=== PATIENT | male | born 1955 | race Caucasian/White ===

== ENCOUNTER 2017-09-10 08:18 | Inpatient (IN) | payer BC, OTHER ==
[~2017-09-10] VITALS: Ht 180.3 cm; Wt 85.3 kg
[2017-09-10] MEDS ORDERED: ACETAMINOPHEN 325 MG TABLET PO PRN (13:00)
[2017-09-10] MEDS ORDERED: MAG HYDROX/AL HYDROX/SIMETH 30 ML LIQUID UDC PO PRN (13:00)
[2017-09-10] MEDS ORDERED: LORAZEPAM 1 MG TABLET PO PRN ×2 (13:00)
[2017-09-10] MEDS ORDERED: ONDANSETRON 4 MG/2 ML VIAL IM PRN (13:00)
[2017-09-10] MEDS ORDERED: IBUPROFEN 400 MG TABLET PO PRN (13:00)
[2017-09-10] MEDS ORDERED: diphenhydrAMINE 50 MG CAPSULE PO PRN (13:00)
[2017-09-10] MEDS ORDERED: LOPERAMIDE HCL 2 MG CAPSULE PO PRN ×2 (13:00)
[2017-09-10] MEDS ORDERED: CLONIDINE HCL 0.1 MG TABLET PO PRN (13:00)
[2017-09-10] MEDS ORDERED: DICYCLOMINE HCL 20 MG TABLET PO PRN (13:00)
[2017-09-10] MEDS ORDERED: MIRALAX 17 GM POWD.PACK PO PRN (13:00)
[2017-09-10] MEDS ORDERED: ONDANSETRON ODT 4 MG TAB.RAPDIS SL PRN (13:00)
[2017-09-10] MEDS ORDERED: LORAZEPAM 2 MG/1 ML VIAL IM PRN (13:00)
--- NOTE | 2017-09-10 13:15 | NUR ---
Intake Assessment; Patient is a 62 year old male presented to [facility] to detoxify from ETOH (beer). Patient is from [place] and arrived at intake office approximately 1300. Patient appears anxious, irritable, chills, tremors, diaphoresis and headache. Patient denies history of seizures and denies any allergies. Admitting vital signs are as follows; BP 131/85, HR 90, Respirations 18, SPo2 @ 96%, temperature 97.8, denies pain at this time. Educated patient regarding unit protocols and policies, patient verbalized understanding. Will continue with further assessment when patient is up on the unit.
[2017-09-10 13:46] LABS: *AMPHETAMINE, URINE NEGATIVE (NEGATIVE); *BARBITURATE, URINE NEGATIVE (NEGATIVE); *CANNABINOID, URINE NEGATIVE (NEGATIVE); *COCCAINE, URINE NEGATIVE (NEGATIVE); *OPIATE, URINE NEGATIVE (NEGATIVE); *PHENCYCLIDINE SCREEN,URINE NEGATIVE (NEGATIVE)
[2017-09-10 13:48] LABS: BASOPHILS % (AUTO) 0.4 % (0.0-2.0); EOSINOPHILS % (AUTO) 0.4 % (0.0-7.0); HEMATOCRIT 49.1 % (36.7-47.1); HEMOGLOBIN 16.8 g/dL (12.5-16.3); LYMPHOCYTES # (AUTO) 1.3 K/uL (20.0-40.0); LYMPHOCYTES % (AUTO) 13.2 % (20.5-51.5); MEAN CORPUSCULAR HGB CONC 34 g/dL (32.5-36.3); MEAN CORPUSCULAR VOLUME 99.3 fL (73.0-96.2); MONOCYTES % (AUTO) 10.2 % (0.0-11.0); NEUTROPHILS # (AUTO) 7.4 K/uL (1.8-8.9); NEUTROPHILS % (AUTO) 75.8 % (38.5-71.5); PLATELET COUNT (AUTO) 196 K/uL (152-348); RED BLOOD CELL COUNT(AUTO) 4.95 MIL/uL (4.06-5.63); WHITE BLOOD COUNT (AUTO) 9.7 K/uL (3.6-10.2)
[2017-09-10] MEDS ORDERED: RIVA20TA PO (13:52)
[2017-09-10] MEDS ORDERED: OMEP20TA20 PO (13:52)
[2017-09-10] MEDS ORDERED: [UNRECOGNIZED DRUG - OTHER] INH (13:52)
[2017-09-10] MEDS ORDERED: FURO40TA5 PO (13:52)
[2017-09-10] MEDS ORDERED: zicam (13:52)
[2017-09-10] MEDS ORDERED: LORA10TA7 PO (13:52)
[2017-09-10] MEDS ORDERED: FLUO40CA49 PO (13:52)
[2017-09-10] MEDS ORDERED: ONDA8TAB13 PO (13:52)
[2017-09-10 13:53] LABS: ETHANOL < 3 MG/DL (0-0)
[2017-09-10 13:56] LABS: ALANINE AMINOTRANSFERASE 97 U/L (16-63); ALKALINE PHOSPHATASE 113 U/L (50-136); AMYLASE 62 U/L (25-115); ASPARTATE AMINOTRANSFERASE 87 U/L (15-37); BILIRUBIN,TOTAL 1.1 mg/dL (0.2-1.0); CARBON DIOXIDE 25 mmol/L (21-32); CHLORIDE 97 mmol/L (98-107); CREATININE 1.3 mg/dL (0.6-1.3); GLUCOSE 113 mg/dL (74-106); MAGNESIUM 1.9 mg/dL (1.8-2.4); POTASSIUM 4.2 mmol/L (3.5-5.1); TOTAL PROTEIN, SERUM 8.1 g/dL (6.4-8.2); UREA NITROGEN, BLOOD 14 mg/dL (7-18)
[2017-09-10] MEDS ORDERED: THIAMINE HCL 200 MG/2 ML VIAL IM ONE (14:00)
[2017-09-10] MEDS ORDERED: Medication Not On Formulary EA (Fluoxetine Hcl 40 MG) PO SCH (14:30)
--- NOTE | 2017-09-10 15:03 | NUR ---
Admission note; Patient is a 62 year old male presented to [facility] to detoxify from ETOH (beer). Patient is from [place] and arrived at intake office approximately 1300. Patient appears anxious, irritable, chills, tremors, diaphoresis and headache. Patient denies history of seizures and denies any allergies. Admitting vital signs are as follows; BP 131/85, HR 90, Respirations 18, SPo2 @ 96%, temperature 97.8, denies pain at this time. Educated patient regarding unit protocols and policies, patient verbalized understanding. Substance use discussed. Patient reported that he started drinking when he was 12 years old. 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 At this rate he consumes (12oz) 6-12 bottles of beer on a daily basis , last consumed on 09/08/17 afternoon. He also had a history of Opioid use d/t to his herniated disc , but he stated that the last time he took Opioid was 06/2017. Patient was also prescribed Ativan for Anxiety PRN but patient denies dependence to Benzodiazepines. Medical history discussed. Patient reported chronic back pain d/t herniated/bulging disc 4 years ago, hernia repair 5 years ago, GERD, Legionella disease 4 years ago and Cardiac Ablation d/t arrhythmia 1 year ago. Patient reported that he was taking Xarelto before last taken 8 months ago and Lasix last taken July 2016. Currently patient takes Fluoxetine and Prilosec only. Patient has never been to medical Detox treatment before. Patient's primary care physician is Dr. Alex Miramontes. Skin check done with no significant findings. Current CIWA score of 5. Patient reported that his Advance directive is DNR, reported to Dr. Ceballos. All safety measures secured. Will continue to monitor patient. Patient was seen and evaluated by
[2017-09-10 16:00] VITALS: BP 117/90
[2017-09-10] MEDS: LORAZEPAM 1 MG TABLET PO SCH ×2 (16:14→20:42)
--- NOTE | 2017-09-10 18:47 | NUR ---
End of shift note; Patient is AOX4. Patient was started on a 5 day Ativan taper. Educated patient regarding the importance of compliance to treatment and medication regime, patient verbalized understanding. Patient's last CIWA is 11 at 1600. Patient appears anxious, tremors noted, restless, complaining of headache, diaphoresis and stomach cramps. All safety measures secured. Met all needs.
--- NOTE | 2017-09-10 19:30 | NUR ---
START OF SHIFT Received 62 year old male patient. Pt is alert and oriented x4. Noted with fine tremors, anxiety, restlessness, and flushed face. Per endorsement, pts 5 day Ativan taper was started today 09/10/17 for ETOH withdrawal. Breathing is even and unlabored, safety measures in place. Will continue to monitor.
[2017-09-10 20:14] VITALS: BP 124/81
[2017-09-11] VITALS: BP 115/87
[2017-09-11 04:00] VITALS: BP 117/74
--- NOTE | 2017-09-11 07:08 | NUR ---
END OF SHIFT Pt is a 62 year old male patient. Pt remains alert and oriented x4. He was noted with tremors, flushed face, anxiety and restlessness during the shift. He did not receive or request PRN medications. He slept a total of 11hrs, Intake: 250mL, Void: 0, BM:0, CIWA: 10. Breathing is even and unlabored, safety measures in place. Endorsed to AM shift.
--- NOTE | 2017-09-11 07:10 | NUR ---
Start of Shift Mortgage Processor received report on 62 year old male admitted to [facility] on 09/10/17 for medically supervised withdrawal from ETOH. Pt endorses NKA, regular diet and is a DNR. Pt reports a PMH of Chronic back pain, GERD, cardiac ablation due to arrhythmia approximately 1 year ago and Legionella disease. Pt has been started on an Ativan taper, tolerating well with last CIWA 10, recorded at 2000 per NOC report. Pt slept for 11 hours. Mortgage Processor encounters pt in his room resting with eyes closed. Rise and fall of chest noted, with even and unlabored respirations. Bed in low position with wheels locked and side rails up x2. Will continue to monitor, support and encourage according to plan of care.
[2017-09-11 08:09] LABS: HEPATITIS B SURFACE AG Negative (Negative)
[2017-09-11 08:30] VITALS: BP 112/71
[2017-09-11] MEDS ORDERED: TUBERCULIN,PURIF.PROT.DERIV. 5 TU/0.1 ML TEST ID ONE (09:00)
[2017-09-11] MEDS: LORAZEPAM 1 MG TABLET PO SCH ×3 (09:40→16:00)
[2017-09-11] MEDS: MULTIVITAMINS,THERAPEUTIC TABLET PO SCH (09:41)
[2017-09-11] MEDS: THIAMINE HCL 100 MG TABLET PO SCH (09:41)
[2017-09-11] MEDS: FOLIC ACID 1 MG TABLET PO SCH (09:41)
[2017-09-11] MEDS: FLUOXETINE HCL 20 MG CAPSULE PO SCH (09:42)
[2017-09-11 12:00] VITALS: BP 117/70
--- NOTE | 2017-09-11 15:36 | NUR ---
Endorsement Perl Programmer report on 62 year old male admitted to [facility] on 09/10/17 for medically supervised withdrawal from ETOH. Pt endorses NKA, regular diet and is a DNR. Pt reports a PMH of Chronic back pain, GERD, cardiac ablation due to arrhythmia approximately 1 year ago and Legionella disease. Pt has been started on an Ativan taper, tolerating well with last CIWA 6, recorded at 1200. Pt has been calm, cooperative and pleasant with proposal lead writer. Makes his needs known and is clear in thought and speech. Linear thought process. Bed in low position with wheels locked and side rails up x2. Will continue to monitor, support and encourage according to plan of care.
--- NOTE | 2017-09-11 15:37 | NUR ---
Assumed Care: Assumed care for the patient at this time. Patient is a 62 year old male admitted for ETOH withdrawal who was placed on a 5-day Ativan taper as ordered that was started today. Patient is tolerating current taper well. Patient is a DNR. NKA. FULL CODE. Regular diet. Last CIWA 6. No PRNs given. All pertinent information explained. Patient is in his room at this time. Reading educational topics. Appears disheveled, unshaven, odorous. Encouraged maintenance of personal hygiene and personal space. Patient noted with gross tremors and appears flushed. All needs met and attended. Will continue to monitor. Addendum: 09/11/17 at 1718 by KALI TY LVN Note correction: Patient is on a 4-day Ativan taper. Not 5.
[2017-09-11 16:00] VITALS: BP 124/91
--- NOTE | 2017-09-11 19:02 | NUR ---
End of Shift Notes: Patient initiated his 4-day Ativan taper as ordered. No adverse reactions noted. Patient is tolerating taper well. VS monitored closely. No significant abnormalities noted. WIthdrawal symptoms were closely monitored. Last CI, patient presented with anxiety, agitation, facial flushing, tremors, fatigue, restlessness and sweating. No PRNs given during the shift. Denies S/I or H/I. No AV hallucinations noted. Unable to participate in group and activities due to his withdrawal symptoms. Oral fluids encouraged. Support provided. All needs met and attended. Will continue to monitor closely.
--- NOTE | 2017-09-11 19:30 | NUR ---
START OF SHIFT Pt is a 62 year old male patient admitted for ETOH withdrawal. Pt is alert and oriented x4. He is currently receiving a 4 day modified Ativan taper. Pt is noted with anxiety, restlessness, and fine tremors. Pt noted to be disheveled with unwashed hair and unshaved face. He did not receive or request PRN medications. Last CIWA:14 at 1600. Breathing is even and unlabored. Safety measures in place. Will monitor.
[2017-09-11 20:00] VITALS: BP 122/79
[2017-09-11] MEDS ORDERED: LORAZEPAM 1 MG TABLET PO SCH (21:00)
[2017-09-12] VITALS: BP 114/75
[2017-09-12 04:00] VITALS: BP 116/77
--- NOTE | 2017-09-12 06:59 | NUR ---
END OF SHIFT Pt is a 62 year old male patient admitted on 09/10/17 for ETOH withdrawal. He remains alert and oriented x4. He continues on a modified 4 day Ativan taper and is tolerating well. He was noted with fine tremors, anxiety, restlessness, chills and diaphoresis during shift. He did not receive or request PRN medications. PRN Benadryl for insomnia was offered, pt refused and reported the Ativan will help him sleep. He was able to sleep 8 hrs, Intake: 3,000mL, Void: x1, BM:0, CIWA:12 at 2000. Breathing is even and unlabored, safety measures in place. Endorsed to AM shift.
--- NOTE | 2017-09-12 07:00 | NUR ---
Start of Shift Nib Assembler received report on 62 year old male admitted to [facility] on 09/10/17 for medically supervised withdrawal from ETOH. Pt endorses NKA, regular diet and is a DNR. Pt reports a PMH of Chronic back pain, GERD, cardiac ablation due to arrhythmia approximately 1 year ago and Legionella disease. Pt has been started on an Ativan taper, tolerating well with last CIWA 12, recorded per NOC report. Pt slept for 8 hours. Nib Assembler encounters pt in his room resting with eyes closed. Rise and fall of chest noted, with even and unlabored respirations. Bed in low position with wheels locked and side rails up x2. Will continue to monitor, support and encourage according to plan of care.
[2017-09-12 08:00] VITALS: BP 122/79
[2017-09-12] MEDS: THIAMINE HCL 100 MG TABLET PO SCH (09:02)
[2017-09-12] MEDS: FLUOXETINE HCL 20 MG CAPSULE PO SCH (09:03)
[2017-09-12] MEDS: LORAZEPAM 1 MG TABLET PO SCH ×3 (09:03→20:59)
[2017-09-12] MEDS: MULTIVITAMINS,THERAPEUTIC TABLET PO SCH (09:03)
[2017-09-12] MEDS: FOLIC ACID 1 MG TABLET PO SCH (09:03)
[2017-09-12 12:20] VITALS: BP 124/69
--- NOTE | 2017-09-12 15:04 | NUR ---
PRN Maalox Pt complain of heartburn, asks for something. Pt administered medication per order with p tolerating well. Will continue to monitor, support and encourage according to plan of care.
[2017-09-12 16:00] VITALS: BP 111/79
--- NOTE | 2017-09-12 16:04 | NUR ---
Maalox Re-Assessment Endorses relief. Will continue to monitor, support and encourage according to plan of care.
--- NOTE | 2017-09-12 17:11 | NUR ---
Therapist prompted client to attend daily group therapy sessions. Client agreed to attend the next group.
--- NOTE | 2017-09-12 18:54 | NUR ---
End of Shift Assistant Press Operator received report on 62 year old male admitted to [facility] on 09/10/17 for medically supervised withdrawal from ETOH. Pt endorses NKA, regular diet and is a DNR. Pt reports a PMH of Chronic back pain, GERD, cardiac ablation due to arrhythmia approximately 1 year ago and Legionella disease. Pt has been started on an Ativan taper, tolerating well with last CIWA 5, recorded at 1600. Pt has Maalox administered at 1504, tolerated well. Pt is isolative and withdrawn to room. Does make needs known. Not much peer interaction. Calm and cooperative. Polite and pleasant. Normal affect with full range of emotions. Bed in low position with wheels locked and side rails up x2. Will continue to monitor, support and encourage according to plan of care.
--- NOTE | 2017-09-12 19:30 | NUR ---
START OF SHIFT Received 62 year old male patient admitted on 09/10/17 for ETOH withdrawal. Pt continues on a modified 4 day Ativan taper and is tolerating well. Pt is alert and oriented x4. He is noted with anxiety, restlessness, agitation, diaphoresis, sensitivity to light, fine tremors and flushed face. He appears disheveled, with unwashed and uncombed hair and unwashed clothing. Per endorsement, he received PRN Maalox for heartburn. Last CIWA:5 at 1600. Breathing is even and unlabored. Safety measures in place. Will continue to monitor.
[2017-09-12 20:00] VITALS: BP 105/60
--- NOTE | 2017-09-12 21:00 | NUR ---
PRN MOTRIN Pt complains of 7/10 back pain. PRN Motrin administered as ordered. Breathing is even and unlabored, safety measures in place. Will continue to monitor.
--- NOTE | 2017-09-12 22:00 | NUR ---
PRN MOTRIN REASSESSMENT PRN medication effective. Pt is lying in bed with eyes closed noted to be asleep. No facial grimacing. Breathing is even and unlabored, safety measures in place. Will continue to monitor.
[2017-09-13] VITALS: BP 112/65
[2017-09-13 04:00] VITALS: BP 114/69
--- NOTE | 2017-09-13 07:01 | NUR ---
END OF SHIFT Pt is a 62 year old male patient admitted on 09/10/17 for ETOH withdrawal. He remains alert and oriented x4. Pt continues on a modified 4 day Ativan taper and tolerating well. He had complaints of back pain, anxiety, agitation, sensitivity to light and sound, chills and sweats during shift. He was noted to be disheveled and unshaven and remained isolated in room. He received PRN Motrin at 2058. He slept a total of 10 hrs, Intake: 1,250mL, Void: x1, BM:0, CIWA: 9 at 1999. Breathing is even and unlabored. Safety measures in place. Endorsed to AM shift.
--- NOTE | 2017-09-13 07:11 | NUR ---
START OF SHIFT Pt is a 62 yr old male, admitted on 09/10/17 for ETOH withdrawal and is on 4 day Ativan taper as ordered. Medication phoenix well. Received report from election watcher nurse. Pt received Motrin PRN during the night for back pain. Medication was effective. Pt slept for 10 hrs. Last CIWA score was 9 at 1999. Pt is currently in bed sleeping with respirations even and unlabored. Skin is intact, warm and moist to touch. Pt is on fall an seizure precautions. Call light is within reach. Will continue to monitor.
[2017-09-13 08:22] VITALS: BP 131/83
[2017-09-13] MEDS: FLUOXETINE HCL 20 MG CAPSULE PO SCH (08:34)
[2017-09-13] MEDS: MULTIVITAMINS,THERAPEUTIC TABLET PO SCH (08:34)
[2017-09-13] MEDS: FOLIC ACID 1 MG TABLET PO SCH (08:34)
[2017-09-13] MEDS: THIAMINE HCL 100 MG TABLET PO SCH (08:35)
[2017-09-13] MEDS ORDERED: LORAZEPAM 1 MG TABLET PO SCH ×2 (09:00)
[2017-09-13 12:00] VITALS: BP 123/86
[2017-09-13 16:55] VITALS: BP 112/75
[2017-09-13] MEDS ORDERED: LORAZEPAM 1 MG TABLET PO PRN ×2 (17:15)
--- NOTE | 2017-09-13 17:26 | NUR ---
COMMUNICATION Pt is noted with increase anxiety and gross tremors on bilateral arms. Pt states of feeling agitated and is c/o headache. Pt is noted with facial sweats. CIWA score was 14. Pt is also noted with increase HR of 113. Dr. Ceballos was made aware with new order to extend Ativan taper for w/d. Will continue to f/u.
[2017-09-13] MEDS: LORAZEPAM 1 MG TABLET PO SCH ×2 (17:44→20:34)
--- NOTE | 2017-09-13 19:10 | NUR ---
END OF SHIFT Pt is a 62 yr old male, AA&OX4. Pt was admitted on 09/10/17 for ETOH withdrawal and was changed from a 4 day to a 5 day Ativan taper due to w/d. Pt was noted with increase anxiety and agitation. Tremors were observed on bilateral arms and facial sweats were noted. Pt also c/o headache. CIWA score was 14. Dr. Ceballos was made aware and cancelled discharge order for 09/14/17, pt is not medically cleared to be discharged. Pt was given Ativan 2mg at 1744. Medication was effective. Pt was encouraged to attended group but refused to attend. No PRNs were given. Last CIWA score was 14 at 1600. Pt was encouraged increase fluid intake for hydration. Pt is on fall and seizure precautions. Call light is within reach.
--- NOTE | 2017-09-13 19:10 | NUR ---
START OF SHIFT NOTE: Presented a 62 year old male admitted for Alcohol/"Beers" withdrawal. He is continues 5 day Ativan taper which tolerated well. Patent reports NKA, is on "DNR", Regular Diet, is on Fall and Seizures Precautions. Patient denies History of withdrawal-induced seizures. Patient denies SI/HI. Patient is alert and oriented x4. Last CIWA=14 @1600 per outgoing day shift nurse report: Patient presented with moderate withdrawal symptoms of anxiety, agitation, nervousness, tremors, sweating, and headache. Ativan 2 mg PO given @1744 was effective per day shift nurse report. Patient remains compliant with treatment, medications and diet regime. Encouraged to fluid intake as tolerated. Encourage to attended groups activities. All needs met. Safety measures in place: Call light within reach, bed is locked in lowest position, padded bed rails up bilaterally. Patient endorsed by day shift nurse. Report received. Will continue to monitor closely.
[2017-09-13 20:00] VITALS: BP 108/72
[2017-09-14] VITALS: BP 96/72
[2017-09-14 04:00] VITALS: BP 103/74
--- NOTE | 2017-09-14 06:52 | NUR ---
END OF SHIFT NOTE 62 old male admitted to [facility] for ETOH(Beer) withdrawal, continues 5 Day Ativan Taper with tolerated . Patient reports NKA, is on "DNR" Code, Regular Diet, Fall and Seizures Precautions. Patient is alert and oriented x4. Patient 's c/o feelings of low self-esteem, increased anxiety, depression, and irritability. Patient denied SI/HI. Emotional support provided, and patient 's reassuring. Patient note unshaven, unkempt, uncombed, sad with poor eye contact. He was educated in safety and hygiene care, encouraged to independently perform hygiene care. Withdrawal symptoms was closely monitored. CIWA=10 @2000, CIWA=8 @0000, CIWA=8 @0400. Patient presented with anxiety, agitation, nervousness, tremors, sweating, fatigue, and restlessness. Skin is intact, warm, and dry to touch. Patient encouraged to increase oral fluid intake as tolerated. Patient encouraged to attend group activities. No PRN Medications administrated during my shift. Calm environment and minimized noises was provided. Patient slept 11 hours, intake 500 ml, voided x1. All needs met. Safety measures in the place by hospital policy: Call light within reach, bed in the lowest position and locked, padded rails up x2. Patient endorsed to day shift nurse, report given.
--- NOTE | 2017-09-14 07:26 | NUR ---
START OF SHIFT Pt is a 62 yr old male, admitted on 09/10/17 for ETOH withdrawal and is on 5 day Ativan taper as ordered. Medication phoenix well. Received report from [id number] armor crewman nurse. No PRN's were given during the night. Pt slept for 11 hrs. Last CIWA score was 8 at 0400. Pt is currently sitting up in bed, stating he feel "much better today". Pt is observed with anxiety m/b difficulty staying still. Skin is intact, warm and moist to touch. No tremors seen or felt. Pt was encouraged increase fluid intake. Pt is on fall an seizure precautions. Call light is within reach. Will continue to monitor.
[2017-09-14 08:01] VITALS: BP 92/54
[2017-09-14] MEDS: FOLIC ACID 1 MG TABLET PO SCH (08:50)
[2017-09-14] MEDS: THIAMINE HCL 100 MG TABLET PO SCH (08:51)
[2017-09-14] MEDS: FLUOXETINE HCL 20 MG CAPSULE PO SCH (08:51)
[2017-09-14] MEDS: MULTIVITAMINS,THERAPEUTIC TABLET PO SCH (08:51)
[2017-09-14] MEDS ORDERED: LORAZEPAM 1 MG TABLET PO SCH ×2 (09:00)
--- NOTE | 2017-09-14 10:33 | NUR ---
Therapist prompted client to attend all groups while in treatment to increase feelings of being connected to others and not be isolated in bedroom. Therapist explained the benefits of attending groups such as learning new coping tools, learning about feelings/emotions and being able to learn to decrease negative feelings and thoughts
--- NOTE | 2017-09-14 11:05 | NUR ---
AMA NOTE Pt was insistent on leaving AMA, stating he was not having symptoms of w/d. Pt was to be scheduled for discharged today on 09/14/17 but was cancelled due to high CIWA scores the night before on 09/13/17 and per MD, pt was continued on Ativan taper from 4 days to 5 day Ativan. Pt refused to take Ativan 1mg PO as scheduled at 0900 today. Pt was spoken to by MD and Staff the importance of continuing the care and the risks of leaving AMA. Pt was able to verbalize understanding but was adamant on leaving. No SI/HI is noted. Pt left the unit at 1100 on 09/14/17 in stable condition. Pt left with all belongings, valuables and home medication. Community Resources was provided.
== END 2017-09-14 11:00 | disposition left against medical advice (07) | DRG 894 ==
LOC: SRC 12:16
PROVIDERS: ADMIT Internal Medicine; ATTEND Internal Medicine
PROC: HZ2ZZZZ Detoxification Services for Substance Abuse Treatment (ICD-10-PCS; principal; 2017-09-10)
PROC: HZ41ZZZ Group Counseling for Substance Abuse Treatment, Behavioral (ICD-10-PCS; 2017-09-11)
PROC: HZ31ZZZ Individual Counseling for Substance Abuse Treatment, Behavioral (ICD-10-PCS; 2017-09-13)
DX: F10.230 Alcohol dependence with withdrawal, uncomplicated (principal); K70.10 Alcoholic hepatitis without ascites; E87.1 Hypo-osmolality and hyponatremia; E87.8 Other disorders of electrolyte and fluid balance, not elsewhere classified; F33.1 Major depressive disorder, recurrent, moderate; Y90.0 Blood alcohol level of less than 20 mg/100 ml; E86.1 Hypovolemia; G89.29 Other chronic pain; E78.5 Hyperlipidemia, unspecified; Z81.1 Family history of alcohol abuse and dependence; F17.210 Nicotine dependence, cigarettes, uncomplicated; F11.11 Opioid abuse, in remission; M51.17 Intervertebral disc disorders with radiculopathy, lumbosacral region; Z79.899 Other long term (current) drug therapy; Z66 Do not resuscitate; F41.9 Anxiety disorder, unspecified
CPT/HCPCS: 36415; 80307; 83735; 85025; 86592; 86705; 86803; 87340; 87806; A4663; G0480; J3411; Q0163